=== PATIENT | female | born 1950 | race Caucasian/White ===

== ENCOUNTER 2021-10-19 16:07 | Inpatient (IN) | payer MEDICARE ==
[~2021-10-19] VITALS: Ht 160 cm; Wt 54.4 kg
[2021-10-19 16:38] LABS: BASOPHILS % 0.4 % (0.0-1.0); EOSINOPHILS % 0.2 % (0.0-6.0); HEMATOCRIT 48.4 % (34.2-44.1); HEMOGLOBIN 16.2 g/dL (12.0-16.0); LYMPHOCYTES # (AUTO) 1.9 (1.0-3.2); LYMPHOCYTES % 20.8 % (18.0-39.1); MEAN CORPUSCULAR HEMOGLOBIN 32.5 pg (28-32); MEAN CORPUSCULAR HGB CONC 33.5 g/dL (31-35); MEAN CORPUSCULAR VOLUME 97.2 fL (81-99); MONOCYTES # (AUTO) 0.7 (0.2-0.8); MONOCYTES % 7.2 % (4.4-11.3); NEUTROPHILS # (AUTO) 6.5 (2.1-6.9); NEUTROPHILS % 71.1 % (38.7-80.0); PLATELET COUNT 148 x10e3/uL (140-360); RED BLOOD COUNT 4.98 x10e6/uL (3.6-5.1); RED CELL DISTRIBUTION WIDTH 13.4 % (11.7-14.4)
[2021-10-19 16:45] LABS: INR 1.05; PROTHROMBIN TIME 14.6 seconds (11.9-14.5)
[2021-10-19 16:46] LABS: PARTIAL THROMBOPLASTIN TIME 26.3 seconds (23.8-35.5)
[2021-10-19 16:52] LABS: ALBUMIN 4.1 g/dL (3.5-5.0); ALBUMIN/GLOBULIN RATIO 1.1 (0.8-2.0); ANION GAP 20.4 mmol/L (8-16); CALCIUM 9.8 mg/dL (8.4-10.2); CREATININE, SERUM 2.45 mg/dL (0.57-1.11); POTASSIUM 4.4 mmol/L (3.5-5.1)
[2021-10-19 16:58] LABS: CREATINE KINASE MB 10.5 ng/mL (0-5.0)
[2021-10-19 17:55] LABS: CLARITY,URINE SL CLOUDY (CLEAR); COLOR,URINE YELLOW (YELLOW); KETONES,URINE TRACE (NEGATIVE); LEUKOCYTE ESTERASE ,URINE SMALL (NEGATIVE); NITRITE,URINE POSITIVE (NEGATIVE); PROTEIN,URINE DIPSTICK 1+ (NEGATIVE); URINE UROBILINOGEN 0.2 mg/dL (0.2 - 1)
[2021-10-19 18:11] LABS: AMORPHOUS SEDIMENT,URINE FEW (FEW); BACTERIA,URINE MANY /HPF; EPITHELIAL CELLS,URINE FEW /LPF
[2021-10-19] MEDS ORDERED: CEFTRIAXONE 1 GM VIAL IM ONE (18:45)
[2021-10-19] MEDS ORDERED: ONDANSETRON HCL INJ 2MG/ML 2ML 2 MG/ML VIAL IV PRN (19:15)
[2021-10-19] MEDS ORDERED: SODIUM CHLORIDE 0.9% 1000ML 1,000 ML IV ONE (19:15)
[2021-10-19] MEDS: ACETAMINOPHEN 325 MG TAB PO PRN (19:21)
[2021-10-19] MEDS ORDERED: ALBUTEROL/IPRATROPIUM 3 ML NEB NEB PRN (21:00)
[2021-10-19] MEDS ORDERED: HYDRALAZINE HCL 20 MG/ML VIAL IV PRN (21:00)
[2021-10-19] MEDS ORDERED: ENOXAPARIN SODIUM INJ 100 MG/ML SYR SC SCH (21:00)
[2021-10-19] MEDS ORDERED: ACETAMINOPHEN 325 MG TAB PO PRN (21:00)
[2021-10-19] MEDS ORDERED: ENOXAPARIN SOD INJ 60 MG/0.6 ML SYR SC ONE (21:30)
[2021-10-19 21:57] VITALS: BP 158/73
[2021-10-19] MEDS ORDERED: FLONASE ALLERG9.9 ML INH (22:44)
[2021-10-19] MEDS ORDERED: VENTOLIN HFA18 GM INH (22:44)
[2021-10-19] MEDS ORDERED: IPRATROPIU0.2 MG/1 M INH (22:44)
[2021-10-19] MEDS ORDERED: LISINOPRIL10 MG PO (22:44)
[2021-10-19] MEDS ORDERED: TERBINAFINE HC250 MG PO (22:44)
[2021-10-19] MEDS ORDERED: ZYRTEC10 M3 (22:44)
[2021-10-19] MEDS ORDERED: ELIQUIS5 MG PO (22:44)
[2021-10-19] MEDS ORDERED: LIPITOR20 MG PO (22:44)
[2021-10-19] MEDS ORDERED: IBUPROFEN800 MG PO (22:44)
[2021-10-20] VITALS (7 sets, daily range): BP systolic 111–132; BP diastolic 51–82
[2021-10-20] MEDS: ACETAMINOPHEN 325 MG TAB PO PRN (01:05)
[2021-10-20] MEDS: TRAMADOL HCL 50 MG TAB PO PRN ×2 (05:49)
[2021-10-20 05:51] LABS: BASOPHILS # (AUTO) 0.1 (0.0-0.1); BASOPHILS % 0.6 % (0.0-1.0); EOSINOPHILS % 0.4 % (0.0-6.0); HEMATOCRIT 44.3 % (34.2-44.1); HEMOGLOBIN 15.1 g/dL (12.0-16.0); LYMPHOCYTES # (AUTO) 1.7 (1.0-3.2); MEAN CORPUSCULAR HGB CONC 34.1 g/dL (31-35); MEAN CORPUSCULAR VOLUME 96.7 fL (81-99); MONOCYTES # (AUTO) 0.6 (0.2-0.8); MONOCYTES % 7.5 % (4.4-11.3); NEUTROPHILS # (AUTO) 5.3 (2.1-6.9); NEUTROPHILS % 69.1 % (38.7-80.0); PLATELET COUNT 139 x10e3/uL (140-360); RED BLOOD COUNT 4.58 x10e6/uL (3.6-5.1); RED CELL DISTRIBUTION WIDTH 13.3 % (11.7-14.4)
[2021-10-20 06:19] LABS: ALBUMIN 3.5 g/dL (3.5-5.0); ALBUMIN/GLOBULIN RATIO 1.2 (0.8-2.0); ANION GAP 16.7 mmol/L (8-16); CALCIUM 8.5 mg/dL (8.4-10.2); CREATININE, SERUM 1.73 mg/dL (0.57-1.11); POTASSIUM 3.7 mmol/L (3.5-5.1)
[2021-10-20] MEDS ORDERED: FAMOTIDINE 20 MG TAB PO SCH (07:30)
[2021-10-20] MEDS ORDERED: ASPIRIN 81 MG CHEW TAB PO ONE (07:45)
[2021-10-20] MEDS ORDERED: ALBUTEROL SULFATE HFA 8GM INHALATION AEROSOL INH PRN (07:45)
[2021-10-20] MEDS ORDERED: LORATADINE 10 MG TAB PO PRN (07:45)
[2021-10-20] MEDS ORDERED: IPRATROPIUM BROMIDE 0.02% 2.5 ML NEB INH PRN (07:45)
[2021-10-20] MEDS: SODIUM CHLORIDE 0.9% 1000ML 1,000 ML IV SCH ×2 (08:30→17:33)
[2021-10-20] MEDS ORDERED: NON-FORMULARY MEDICATION (Fluticasone Propionate* (Flonase Allergy Relief*) 2 EACH) INH SCH (09:00)
[2021-10-20] MEDS ORDERED: APIXABAN 5 MG TABLET PO SCH (09:30)
[2021-10-20] MEDS: LISINOPRIL 10 MG TAB PO SCH (09:45)
[2021-10-20] MEDS: APIXAB 2.5 MG TABLET PO SCH ×2 (09:45→17:09)
[2021-10-20] MEDS: FLUTICASONE PROPIONATE NASAL SPRAY NS SCH ×2 (09:45→17:09)
[2021-10-20] MEDS: TERBINAFINE 250 MG TAB PO SCH (10:30)
[2021-10-20] MEDS ORDERED: ONDANSETRON HCL 4 MG ORAL DISINTEGRATING TAB PO PRN (11:00)
[2021-10-20] MEDS ORDERED: ATORVASTATIN 40 MG TAB PO SCH (21:00)
[2021-10-21 00:31] VITALS: BP 129/71
[2021-10-21] MEDS: SODIUM CHLORIDE 0.9% 1000ML 1,000 ML IV SCH (05:33)
[2021-10-21 05:36] VITALS: BP 145/70
[2021-10-21 07:01] LABS: ANION GAP 10.9 mmol/L (8-16); CALCIUM 7.8 mg/dL (8.4-10.2); CREATININE, SERUM 1.01 mg/dL (0.57-1.11); POTASSIUM 3.9 mmol/L (3.5-5.1)
[2021-10-21 07:14] LABS: CREATINE KINASE MB 7.5 ng/mL (0-5.0)
[2021-10-21] MEDS ORDERED: FAMOTIDINE 20 MG TAB PO SCH (07:30)
[2021-10-21 07:33] VITALS: BP 147/70
[2021-10-21] MEDS: FLUTICASONE PROPIONATE NASAL SPRAY NS SCH (08:44)
[2021-10-21] MEDS: TERBINAFINE 250 MG TAB PO SCH (08:49)
[2021-10-21] MEDS: APIXAB 2.5 MG TABLET PO SCH (08:49)
[2021-10-21] MEDS: LISINOPRIL 10 MG TAB PO SCH (08:50)
[2021-10-21] MEDS: TRAMADOL HCL 50 MG TAB PO PRN (08:58)
[2021-10-21 09:00] VITALS: BP 147/70
[2021-10-21 11:15] VITALS: BP 154/72
[2021-10-22] MEDS ORDERED: LISINOPRIL 20 MG TAB PO SCH (09:00)
== END 2021-10-21 13:38 | disposition home or self-care (01) | DRG 682 ==
LOC: ER 16:11 → ERHOLD 19:09 → MED/SURG2 20:52 → OBSVTOIN 10-20 15:20
PROVIDERS: ADMIT Internal Medicine; ATTEND Internal Medicine
DX: N17.9 Acute kidney failure, unspecified (principal); G93.41 Metabolic encephalopathy; N39.0 Urinary tract infection, site not specified; E87.2 Acidosis; I13.0 Hypertensive heart and chronic kidney disease with heart failure and stage 1 through stage 4 chronic kidney disease, or unspecified chronic kidney disease; M62.82 Rhabdomyolysis; I50.9 Heart failure, unspecified; J44.9 Chronic obstructive pulmonary disease, unspecified; E86.0 Dehydration; F17.210 Nicotine dependence, cigarettes, uncomplicated; N18.30 Chronic kidney disease, stage 3 unspecified; I25.10 Atherosclerotic heart disease of native coronary artery without angina pectoris; E78.5 Hyperlipidemia, unspecified; R07.89 Other chest pain; B96.20 Unspecified Escherichia coli [E. coli] as the cause of diseases classified elsewhere; Z85.3 Personal history of malignant neoplasm of breast; I25.2 Old myocardial infarction; Z98.61 Coronary angioplasty status; Z86.711 Personal history of pulmonary embolism; Z88.2 Allergy status to sulfonamides; Z88.8 Allergy status to other drugs, medicaments and biological substances; Z20.822 Contact with and (suspected) exposure to COVID-19
CPT/HCPCS: 36415; 70450; 71045; 72125; 76770; 80048; 80053; 81001; 82550; 82553; 83605; 84484; 85025; 85610; 85730; 87040; 87086; 87186; 93005; 93306; 94799; 96361; 97139; 99284; G0378; J0360; J0696; J1650; J7030; U0002